=== PATIENT | female | born 1935 | race Caucasian/White ===

== ENCOUNTER 2018-02-14 15:30 | Inpatient (IN) | payer OTHER ==
[~2018-02-14] VITALS: Ht 152.4 cm; Wt 98.0 kg
--- NOTE | ~2018-02-14 | PR ---
[place], [place] PROGRESS NOTE NAME: WALLACE DERAS UNIT #: [id number] ROOM: 316 DOCTOR: WALT SANTORO MD BIRTHDATE: [birth year] DOS: 02/18/2018 CHIEF COMPLAINT: "I had enough to eat and I am warm enough, thank you." SUMMARY OF THE VISIT: The patient was interviewed as she was sitting in the dining area covered in a blanket in a Aliyah chair. She engaged in conversation for the entire time that I was in the dining area interviewing her and other patients. She was not yelling out even once. Upon approach, she actually engaged in conversation. This is in wu contrast to yesterday when she yelled the entire morning that I rounded as well as yelling while I attempted to engage her in conversation. Outwardly, she shows no signs of sedation, somnolence, extrapyramidal symptoms or tardive dyskinesia. MENTAL STATUS: She is alert and oriented with significant time gaps. Mood does seem to be more euthymic. Affect more appropriate. There is no devang, hypomania or psychosis. Short term memory continues to be problematic. PLAN: I will increase Namenda from 5 mg daily to 5 mg twice daily. We are maximizing the dose of Exelon patch to 13.3 mg a day. I did start Nuedexta 20-10 yesterday. Within a matter of a few days, I will maximize its dose to 2 twice daily. Continue to engage in individual and cleary milieu activity, returning then to the least restrictive environment when psychiatrically stable. WALT SANTORO MD CM:PNTRANS [id number] WALT SANTORO MD 02/19/18 0138 interface
--- NOTE | ~2018-02-14 | PR ---
[place], [place] PROGRESS NOTE NAME: [facility]ALLACE [facility]ERAS [id number] UNIT #: [id number] ROOM: 316 DOCTOR: FEDERICO MARCOS MD BIRTHDATE: [birth year] DOS: 02/16/2018 PSYCHIATRY PROGRESS NOTE SUBJECTIVE: Patient seen and spoke with the nursing staff. Per staff, patient did not sleep well last night, got p.r.n. No other problems or issues. Per staff, she is compliant with her medication and there are no apparent side effects. Patient was pleasant and cooperative. She was on the Aliyah chair, sleeping near the nursing station. I called her name multiple times, was not able to wake her up. She seems to be not in any acute distress and she was breathing appropriately. MENTAL STATUS EXAMINATION: Not able to do the full mental status examination, as she was sleeping. She was not in any distress and seems to be breathing. PLAN: 1. Continue current medications and care. 2. Continue redirection. 3. Supportive care. FEDERICO MARCOS MD CM:PNTRANS [id number] FEDERICO MARCOS MD 02/17/18135 interface
--- NOTE | ~2018-02-14 | PR ---
[place], [place] PROGRESS NOTE NAME: WALLACE DERAS UNIT #: [id number] ROOM: 316 DOCTOR: WALT SANTORO MD BIRTHDATE: [birth year] DOS: 02/20/2018 CHIEF COMPLAINT: "I want to go home soon." SUMMARY OF THE VISIT: The patient was interviewed as she was sitting in the dining area, watching television with a female peer. She engaged in conversation readily. She was on the verge of tears as she asked if she was able to go home soon. When I did redirect and state that it would be soon, but not today. She nodded in approval. Nurses report, she does have periods of crying and inappropriate emotionality at times. Some of this is related to her being left alone. She does much better if she has company. Of note, however, much of the inappropriate yelling and crying has dissipated with the initiation of the Nuedexta therapy. MENTAL STATUS: She is alert and oriented to person, place, not time. Mood does seem to be trending towards euthymia. Affect is more appropriate. There is no devang or hypomania. There are no overt auditory or visual hallucinations. Memory does have gaps. PLAN: I will maximize the dose of Nuedexta 20-10 to 1 tab q.12h. Monitor and support, engage in individual and cleary milieu activity, returning to the least restrictive environment when psychiatrically stable. WALT SANTORO MD CM:PNTRANS [id number] WALT SANTORO MD 02/20/18 1230 interface
--- NOTE | ~2018-02-14 | WRIGHTHP ---
[place], [place] PATIENT HISTORY AND PHYSICAL EXAM NAME: WALLACE DERAS [facility] #: [id number] UNIT #: [id number] ROOM: 316 DOCTOR: FEDERICO MARCOS MD BIRTHDATE: [birth year] DOS: 02/15/2018 REASON FOR HOSPITALIZATION: Increased delusion and psychotic behavior. HISTORY OF PRESENT ILLNESS: The patient seen and chart reviewed. The patient is an 82-year-old female with history of schizoaffective disorder, got admitted from a senior care facility for increased psychotic and delusional behavior. The patient had multiple medical issues. She is a poor historian. She got cleared medically into the ER and then sent to the psychiatric unit for further care and stabilization. The patient was somewhat irritable and confrontational during the time of the interview. She was in a Aliyah chair in front of the nursing station. She was lying there comfortably. When I asked her how she is doing she said "terrible." When I asked why she is feeling like that she said that she wanted to "get out from this place." When I asked her that where she will go, she said that "I am not going to tell you." The patient also reports poor sleep at night. When I told her that when I asked her why she do not sleep at night she said "I don't want to sleep." When I asked her the reason, she said that someone tried to "put me down." She was hard of hearing as well as a very poor historian. She was not able to tell me the reason that brought her to the hospital. As per the chart, the patient was "manic" calling out other people disruptive, not sleeping. PAST MEDICAL HISTORY: Significant for anemia of chronic disease, congestive heart failure, COPD, CVA, diabetes, end-stage renal disease, GERD, gout, hyperlipidemia, hypertension and hypothyroidism. PAST PSYCHIATRIC HISTORY: The patient has been carrying a diagnosis of schizoaffective disorder and major depressive disorder. SUBSTANCE ABUSE HISTORY: There is no mention of any drugs or alcohol. SOCIAL HISTORY: The patient lives in a senior care facility and she has a POA. MENTAL STATUS EXAMINATION: The patient was irritable and angry. She was alert, but not oriented to day, date, month or year. She said that it is 1966. She described her mood as "I don't know." Affect was labile and irritable. She denied any auditory or visual hallucination, but seems to be delusional and paranoid. She denied any suicidal ideation, intent or plan. She also denied any homicidal ideation, intent or plan. Insight and judgment was impaired. ASSESSMENT: 1. Schizoaffective disorder by history. 2. Dementia with behavioral disturbances. PLAN: 1. I will add Abilify 5 mg at night for her delusion and paranoia as well as [place], [place] PATIENT HISTORY AND PHYSICAL EXAM [facility]: [id number] UNIT #: [id number] ROOM: [facility] DOCTOR: FEDERICO MARCOS MD BIRTHDATE: [birth year] mood symptoms. 2. I will continue the Remeron 15 mg at night. 3. Continue redirection. 4. Continue supportive care. 5. Encourage activity. 6. The patient needs to be closely followed by the medical team due to her multiple medical issues. FEDERICO MARCOS MD CM:HISPHYS:PATIENT HISTORY AND PHYSICAL EXAMINATION [id number] FEDERICO MARCOS MD 02/15/18 1210 interface
--- NOTE | ~2018-02-14 | PR ---
[place], [place] PROGRESS NOTE NAME: WALLACE DERAS UNIT #: [id number] ROOM: 316 DOCTOR: WALT SANTORO MD BIRTHDATE: [birth year] DOS: 02/17/2018 CHIEF COMPLAINT: "Help me, help me, help me." SUMMARY OF THE VISIT: The patient was interviewed or attempted to be interviewed as she reclined in a Aliyah chair in the quiet room. The patient was yelling out help me. She was also asking if I had seen her son and when I attempted to redirect it was too little to no avail. The patient continues to call out almost nonsensically. She is not able to be consoled or redirected. There is almost an involuntary component to her yelling out. Nurses report, this has been consistent throughout the weekend. MENTAL STATUS: She is alert and oriented to self only. It is unclear if she even realizes she is in the hospital. She is certainly not oriented to time. Mood still seems to be wildly labile. Affect inappropriate. There does seem to be excessive emotionality that is incongruent to the situation. Short term memory is exceedingly poor. PLAN: I will simplify her psychotropic regimen as she is on both Vraylar and Abilify. I will discontinue the Vraylar in lieu of the Abilify and monitor and support and decide if further adjustment is needed. She is already on Exelon patch for her cognitive decline. I will augment with Namenda 5 mg a day, since there does seem to be a pseudobulbar like component to her yelling out I will start Nuedexta 20-10 one daily and adjust accordingly, engage in individual and cleary milieu activity, returning then to the least restrictive environment when psychiatrically stable. WALT SANTORO MD CM:PNTRANS [id number] WALT SANTORO MD 02/18/18 0417 interface
--- NOTE | ~2018-02-14 | PR ---
[place], [place] PROGRESS NOTE NAME: WALLACE DERAS UNIT #: [id number] ROOM: 316 DOCTOR: WALT SANTORO MD BIRTHDATE: [birth year] DOS: 02/19/2018 CHIEF COMPLAINT: "It is good, is it not." SUMMARY OF THE VISIT: The patient was interviewed as she was resting quietly in a Aliyah chair in the dining area. She had a blanket pulled up around her neck. She engaged in brief conversation, some of that was nonsensical and she seemed to be focused on whether or not it was good for her to be discharged or not. She voiced no complaints, stating that she slept well, ate well and was warm enough and did not require another blanket. She was as compared to the beginning of the week quiet and cooperative and not yelling nonstop, well somewhat sedate and somnolent this morning, she was easily arousable and engaging. MENTAL STATUS: She is alert and oriented to person, possibly place, not to time. Mood does seem to be trending towards euthymia. Affect is more appropriate. There is no devang, hypomania or psychosis. Short term memory continues to be problematic. PLAN: I will increase Namenda to its maximum dose of 10 mg b.i.d. Maintain her other psychotropics. I will plan to increase the Nuedexta 20-10 to twice a day tomorrow, monitor then for the next 24 hours and proceed with discharge if psychiatrically stable. WALT SANTORO MD CM:PNTRANS [id number] WALT SANTORO MD 02/20/18 0227 interface
[2018-02-14] MEDS ORDERED: ASPIRIN ADULT L81 M2 PO (15:48)
[2018-02-14] MEDS ORDERED: DYMISTA NASAL S23 GM NAS (15:52)
[2018-02-14] MEDS ORDERED: BUMETANIDE1 MG PO (15:53)
[2018-02-14] MEDS ORDERED: VITAMIN D50000 UNIT PO (16:00)
[2018-02-14] MEDS ORDERED: DOCUSATE S100 MG/10 PO (16:04)
[2018-02-14] MEDS ORDERED: EXELON1 EAC1 T (16:06)
[2018-02-14] MEDS ORDERED: IRON325 M3 PO (16:09)
[2018-02-14] MEDS ORDERED: LEVEMIR FL100 UNIT/1 SQ (16:10)
[2018-02-14] MEDS ORDERED: Synthroid,Levo25 MCG PO (16:12)
[2018-02-14] MEDS ORDERED: LIPITOR40 MG PO (16:13)
[2018-02-14] MEDS ORDERED: MAGNESIUM OXID400 MG PO (16:16)
[2018-02-14] MEDS ORDERED: MELATONIN5 M1 PO (16:18)
[2018-02-14] MEDS ORDERED: METOLAZONE2.5 MG PO (16:19)
[2018-02-14] MEDS ORDERED: OMEPRAZOLE D/R20 MG PO (16:21)
[2018-02-14] MEDS ORDERED: POTASSIUM CHLO20 ME3 PO (16:25)
[2018-02-14] MEDS ORDERED: OYSTER SHELL C1 EAC2 PO (16:26)
[2018-02-14] MEDS ORDERED: REMERON SOLTAB15 MG PO (16:29)
[2018-02-14] MEDS ORDERED: SEROQUEL25 MG PO (16:32)
[2018-02-14] MEDS ORDERED: TYLENOL PM EX-1 EACH PO (16:36)
[2018-02-14] MEDS ORDERED: CARVEDILOL12.5 MG PO (16:37)
[2018-02-14] MEDS ORDERED: METHENAMINE HIPP1 G1 PO (16:45)
[2018-02-14] MEDS ORDERED: NYSTOP60 GM T (16:46)
[2018-02-14] MEDS ORDERED: NOVOLOG FL100 UNIT/1 SQ (16:53)
[2018-02-14] MEDS ORDERED: Ipratropium Brom3 ML INH (16:55)
[2018-02-14] MEDS ORDERED: NORCO 5-325 TA1 EACH PO (16:56)
[2018-02-14] MEDS ORDERED: PREPARATION H26 GM T (16:59)
[2018-02-14] MEDS ORDERED: VOLTAREN100 GM T (17:13)
[2018-02-14 17:36] VITALS: BP 136/55
[2018-02-14 17:55] VITALS: BP 136/55
[2018-02-14 18:12] LABS: BASO % 0.6 % (0.0-1.0); EOS # 0.1 10*3/uL (0.0-0.4); EOS % 2.5 % (1.0-4.0); HEMATOCRIT 32.6 % (37.0-47.0); HEMOGLOBIN 10.2 g/dl (12.0-16.0); LYMPH # 1.9 10*3/uL (1.3-4.4); LYMPH % 39.9 % (27.0-41.0); MEAN CELL VOLUME 98.5 fl (81.0-99.0); MEAN CORPUSCULAR HGB 30.8 pg (27.0-31.0); MEAN CORPUSCULAR HGB CONC 31.3 g/dl (33.0-37.0); MEAN PLATELET VOLUME 9.8 fl (9.6-12.3); MONO # 0.4 10*3/uL (0.1-1.0); MONO % 7.4 % (3.0-9.0); NEUT # 2.4 10*3/uL (2.3-7.9); NEUT % 49.4 % (47.0-73.0); PLATELET COUNT AUTOMATED 140 10*3/uL (130-400); RED BLOOD COUNT 3.31 10*6/uL (4.10-5.10); RED CELL DISTRI WIDTH 13.4 % (0-14.5); WHITE BLOOD COUNT 4.8 10*3/uL (4.8-10.8)
[2018-02-14 18:21] LABS: ACT PARTIAL THROMBO TIME 24.8 SECONDS (20.8-31.5); INTERNATIONAL NORM RATIO 1.1 (2.0-3.5)
[2018-02-14 18:28] LABS: CREATININE 2.29 mg/dL (0.55-1.02); POTASSIUM 4.2 mmol/L (3.5-5.1); TOTAL PROTEIN 7.8 gm/dL (6.4-8.2)
[2018-02-14 19:53] VITALS: BP 136/55
[2018-02-15 06:58] LABS: BASO % 0.4 % (0.0-1.0); EOS # 0.2 10*3/uL (0.0-0.4); EOS % 3.2 % (1.0-4.0); HEMATOCRIT 31.9 % (37.0-47.0); HEMOGLOBIN 10.1 g/dl (12.0-16.0); LYMPH # 1.6 10*3/uL (1.3-4.4); LYMPH % 33.1 % (27.0-41.0); MEAN CELL VOLUME 98.8 fl (81.0-99.0); MEAN CORPUSCULAR HGB 31.3 pg (27.0-31.0); MEAN CORPUSCULAR HGB CONC 31.7 g/dl (33.0-37.0); MEAN PLATELET VOLUME 9.5 fl (9.6-12.3); MONO # 0.5 10*3/uL (0.1-1.0); MONO % 9.7 % (3.0-9.0); NEUT # 2.5 10*3/uL (2.3-7.9); NEUT % 53.4 % (47.0-73.0); PLATELET COUNT AUTOMATED 134 10*3/uL (130-400); RED BLOOD COUNT 3.23 10*6/uL (4.10-5.10); RED CELL DISTRI WIDTH 13.3 % (0-14.5); WHITE BLOOD COUNT 4.8 10*3/uL (4.8-10.8)
[2018-02-15 07:29] LABS: ALBUMIN 2.9 gm/dl (3.1-4.5); CREATININE 2.09 mg/dL (0.55-1.02); POTASSIUM 4.1 mmol/L (3.5-5.1)
[2018-02-15 07:39] LABS: THYROID STIM HORMONE (HS) 3.38 uIU/ml (0.358-4.75); TOTAL PROTEIN 7.6 gm/dL (6.4-8.2)
[2018-02-15 07:54] VITALS: BP 125/55
[2018-02-15 08:45] LABS: VITAMIN D, 25-HYDROXY 27.8 ng/mL (30-100)
[2018-02-15 14:28] LABS: BACTERIA TRACE; BILIRUBIN NEGATIVE (NEGATIVE); BLOOD NEGATIVE (NEGATIVE); CLARITY CLEAR (CLEAR); COLOR YELLOW (YELLOW); EPITHELIAL CELLS 21-30; GLUCOSE NEGATIVE (NEGATIVE); KETONE NEGATIVE (NEGATIVE); LEUKO ESTERASE NEGATIVE (NEGATIVE); NITRITE NEGATIVE (NEGATIVE); UROBILINOGEN 0.2 E.U./dl (0.2-1.0)
[2018-02-15 19:42] VITALS: BP 117/64
[2018-02-16 07:53] VITALS: BP 111/65
[2018-02-16 19:41] VITALS: BP 115/65
[2018-02-17 07:19] VITALS: BP 124/68
[2018-02-17 19:59] VITALS: BP 126/70
[2018-02-18 07:23] VITALS: BP 118/72
[2018-02-18 19:58] VITALS: BP 120/68
[2018-02-19 08:02] VITALS: BP 122/65
[2018-02-19 19:59] VITALS: BP 125/67
[2018-02-20 08:18] VITALS: BP 131/67
[2018-02-20 20:02] VITALS: BP 145/64
[2018-02-21 07:20] VITALS: BP 145/51
[2018-02-21] MEDS ORDERED: EXELON13.3 MG/21 T (09:35)
[2018-02-21] MEDS ORDERED: ABILIFY5 MG PO (09:35)
[2018-02-21] MEDS ORDERED: MEMANTINE HCL10 MG PO (09:35)
[2018-02-21] MEDS ORDERED: MIRTAZAPINE15 M1 PO (09:35)
[2018-02-21] MEDS ORDERED: NEUDEXT PO (09:37)
== END 2018-02-21 14:08 | DRG 885 ==
LOC: 3N 15:30
PROVIDERS: Registered Nurse; Student in an Organized Health Care Education/Training Program
PROC: 0HBRXZZ Excision of Toe Nail, External Approach (ICD-10-PCS; principal; 2018-02-18)
DX: F23 Brief psychotic disorder (principal); N18.6 End stage renal disease; F03.91 Unspecified dementia, unspecified severity, with behavioral disturbance; E44.0 Moderate protein-calorie malnutrition; I13.2 Hypertensive heart and chronic kidney disease with heart failure and with stage 5 chronic kidney disease, or end stage renal disease; F25.9 Schizoaffective disorder, unspecified; D63.8 Anemia in other chronic diseases classified elsewhere; E11.65 Type 2 diabetes mellitus with hyperglycemia; I50.9 Heart failure, unspecified; E11.22 Type 2 diabetes mellitus with diabetic chronic kidney disease; E78.5 Hyperlipidemia, unspecified; E03.9 Hypothyroidism, unspecified; H91.90 Unspecified hearing loss, unspecified ear; K21.9 Gastro-esophageal reflux disease without esophagitis; M10.9 Gout, unspecified; E11.51 Type 2 diabetes mellitus with diabetic peripheral angiopathy without gangrene; I87.8 Other specified disorders of veins; Z90.49 Acquired absence of other specified parts of digestive tract; Z86.73 Personal history of transient ischemic attack (TIA), and cerebral infarction without residual deficits; Z79.4 Long term (current) use of insulin; Z79.82 Long term (current) use of aspirin; Z79.899 Other long term (current) drug therapy